=== PATIENT | female | born 1985 | race Caucasian/White ===

== ENCOUNTER → 2016-12-15 | Outpatient (REF) | payer OTHER ==
[~2016-12-15] MED LIST: ACET50TA PO; FERR325T3 PO; IBUP80TA PO; VITAPRTA PO
== END ==
LOC: M SFHCCLAY 15:04
PROVIDERS: ATTEND Nurse Practitioner
DX: N89.8 Other specified noninflammatory disorders of vagina (principal); R10.2 Pelvic and perineal pain

== ENCOUNTER → 2017-04-26 | Outpatient (CLI) | payer MEDICAID ==
[~2017-04-26] MED LIST changes: +FISH100049 PO; +JOIN1CAP PO
[2017-04-26 20:47] LABS: FREE T4 0.86 NG/DL (0.76-1.46)
[2017-04-26 20:59] LABS: MEAN CORPUSCULAR HEMOGLOBIN 33.1 pg (27.0-33.0); MEAN CORPUSCULAR VOLUME 100.3 fl (80.0-96.0); RED CELL DISTRIBUTION WIDTH 13.2 % (11.5-14.5); WHITE BLOOD COUNT 4.8 K/mm3 (4.0-10.0)
== END ==
LOC: M SMT 13:44
PROVIDERS: ATTEND Obstetrics & Gynecology
DX: N92.1 Excessive and frequent menstruation with irregular cycle (principal)

== ENCOUNTER → 2017-06-17 | Outpatient (REF) | payer MEDICAID, OTHER ==
[2017-06-18 12:00] LABS: MEAN CORPUSCULAR HEMOGLOBIN 31.3 pg (27.0-33.0); MEAN CORPUSCULAR HGB CONC 32.8 g/dl (32.0-36.5); MEAN CORPUSCULAR VOLUME 95.3 fl (80.0-96.0); RED CELL DISTRIBUTION WIDTH 12.7 % (11.5-14.5); WHITE BLOOD COUNT 7.7 10^3/uL (4.0-10.0)
[2017-06-18 12:22] LABS: VITAMIN B12 LEVEL 363 PG/ML (247-911)
[2017-06-18 12:28] LABS: FERRITIN 18 NG/ML (8-252); FREE T4 0.81 NG/DL (0.76-1.46)
[2017-06-20 00:06] LABS: Lyme Disease IgG/IgM Antibodie <0.91 ISR (0.00-0.90); Lyme Disease IgM Ab Quantitati <0.80 index (0.00-0.79)
== END ==
LOC: M SFHCCLAY 15:36
PROVIDERS: ATTEND Family Medicine
DX: M25.50 Pain in unspecified joint (principal); R53.83 Other fatigue

== ENCOUNTER → 2017-06-30 | Outpatient (CLI) | payer MEDICAID, OTHER ==
--- NOTE | 2017-07-01 07:47 | REP ---
Clinical: Abnormal menstrual cycles . Technique: Transabdominal pelvic ultrasound followed by transvaginal examination for better evaluation of the endometrium and adnexa with color Doppler evaluation of the ovaries. Findings: Bladder is unremarkable and measures 11.3 x 6.3 x 9.3 cm . Anteverted subseptate uterus measures 8.7 x 4.1 x 6.4 cm . The endometrial complex measures 6.5 mm thickness. No discrete uterine or endometrial abnormalities are appreciated. Bilateral ovaries are normal in appearance and vascularity without evidence for torsion. Right ovary measures 2.7 x 1.5 x 3.1 cm ; R I = 0.50 . Left ovary measures 2.8 x 1.6 x 3.0 cm with 1.3 cm dominant follicle ; R I = 0.66 . No pelvic fluid or adnexal mass lesion. . Impression: 1. Subseptate uterus appears normal. 2. Normal bilateral ovaries without torsion. 1.3 cm left dominant follicle. Signed by Lance Tay MD 07/01/2017 07:39 A
== END ==
LOC: M RAD 12:43
PROVIDERS: ATTEND Obstetrics & Gynecology
DX: N92.1 Excessive and frequent menstruation with irregular cycle (principal); N83.02 Follicular cyst of left ovary

== ENCOUNTER → 2017-08-29 | Outpatient (REF) | payer OTHER | LOC: M LAB REF 21:36 | PROVIDERS: ATTEND Physician Assistant | DX: R30.0 Dysuria (principal) ==

== ENCOUNTER → 2017-10-07 | Outpatient (REF) | payer OTHER | LOC: M SFHCCLAY 15:35 | DX: R87.612 Low grade squamous intraepithelial lesion on cytologic smear of cervix (LGSIL) (principal) | CPT/HCPCS: 88142 ==

== ENCOUNTER → 2018-01-12 | Outpatient (REF) | payer OTHER ==
[2018-01-12 17:01] LABS: RHEUMATOID FACTOR QUANT < 10.0 IU/ML (<15.0)
[2018-01-15 00:07] LABS: ANGIOTENSIN 1 CONVERTING ENZYM 122 U/L (14-82); ANTINUCLEAR ANTIBODIES DIRECT Negative (Negative)
[2018-01-15 00:07] LABS: CYCLIC CITRULLINATED PEPTIDE 6 units (0-19)
== END ==
LOC: M LABDRAW1 12:31
DX: M12.30 Palindromic rheumatism, unspecified site (principal)

== ENCOUNTER 2018-02-06 20:49 | Emergency (ER) | payer OTHER ==
[2018-02-06] MEDS: ALPRAZolam 0.25 MG TAB PO (23:31)
[2018-02-06] MEDS: CEFTAROLINE FOSAMIL 600 MG in D5W MINI-BAG PLUS 50 ML IV (23:31)
[2018-02-06 23:42] LABS: BASO # 0.1 10^3/uL (0.0-0.2); BASO % 0.9 % (0.0-1.0); EOS # 0.2 10^3/uL (0.0-0.50); EOS % 3.8 % (0.0-3.0); HEMATOCRIT 36.5 % (36.0-47.0); HEMOGLOBIN 12.8 g/dl (12.0-15.5); IMMATURE GRANULOCYTE % 0.2 % (0-3.0); LYMPH # 2.3 10^3/uL (1.5-4.5); LYMPH % 39.9 % (24.0-44.0); MEAN CORPUSCULAR HEMOGLOBIN 32.5 pg (27.0-33.0); MEAN CORPUSCULAR HGB CONC 35.1 g/dl (32.0-36.5); MEAN CORPUSCULAR VOLUME 92.6 fl (80.0-96.0); MONO # 0.6 10^3/uL (0.0-0.8); MONO % 9.4 % (0.0-5.0); NEUTROPHILS # 2.7 10^3/uL (1.8-7.7); NEUTROPHILS % 45.8 % (36.0-66.0); PLATELET COUNT, AUTOMATED 306 10^3/uL (150-450); RED BLOOD COUNT 3.94 10^6/uL (4.00-5.40); RED CELL DISTRIBUTION WIDTH 12.6 % (11.5-14.5); WHITE BLOOD COUNT 5.8 10^3/uL (4.0-10.0)
[2018-02-07 00:05] LABS: ANION GAP 5 MEQ/L (8-16); BLOOD UREA NITROGEN 8 MG/DL (7-18); C REACTIVE PROTEIN QUANTITATIV 0.45 MG/DL (0.00-0.30); CALCIUM LEVEL 8.9 MG/DL (8.5-10.1); CARBON DIOXIDE LEVEL 28 MEQ/L (21-32); CHLORIDE LEVEL 110 MEQ/L (98-107); CREATININE FOR GFR 0.83 MG/DL (0.55-1.30); GLOMERULAR FILTRATION RATE > 60.0 (>60); GLUCOSE, FASTING 87 MG/DL (70-100); POTASSIUM SERUM 3.9 MEQ/L (3.5-5.1); SODIUM LEVEL 143 MEQ/L (136-145)
[2018-02-07 00:08] LABS: LACTIC ACID SEPSIS PROTOCOL 0.8 MMOL/L (0.4-2.0)
== END 2018-02-07 00:49 | disposition home or self-care (01) ==
LOC: M ED 02-07 00:49
DX: L03.115 Cellulitis of right lower limb (principal); L03.125 Acute lymphangitis of right lower limb; F41.9 Anxiety disorder, unspecified; Z87.42 Personal history of other diseases of the female genital tract
CPT/HCPCS: J0712

== ENCOUNTER 2018-05-13 09:09 | Emergency (ER) | payer OTHER ==
[2018-05-13 10:29] LABS: BASO # 0.1 10^3/uL (0.0-0.2); BASO % 0.7 % (0.0-1.0); EOS # 0.1 10^3/uL (0.0-0.50); EOS % 1.2 % (0.0-3.0); HEMATOCRIT 38.3 % (36.0-47.0); HEMOGLOBIN 13.5 g/dl (12.0-15.5); IMMATURE GRANULOCYTE % 0.2 % (0-3.0); LYMPH % 34.5 % (24.0-44.0); MEAN CORPUSCULAR HEMOGLOBIN 32.6 pg (27.0-33.0); MEAN CORPUSCULAR HGB CONC 35.2 g/dl (32.0-36.5); MEAN CORPUSCULAR VOLUME 92.5 fl (80.0-96.0); MONO # 0.7 10^3/uL (0.0-0.8); MONO % 8.1 % (0.0-5.0); NEUTROPHILS # 4.8 10^3/uL (1.8-7.7); NEUTROPHILS % 55.3 % (36.0-66.0); PLATELET COUNT, AUTOMATED 290 10^3/uL (150-450); RED BLOOD COUNT 4.14 10^6/uL (4.00-5.40); RED CELL DISTRIBUTION WIDTH 12.5 % (11.5-14.5); WHITE BLOOD COUNT 8.6 10^3/uL (4.0-10.0)
[2018-05-13 10:47] LABS: D-DIMER QUANT 272.2 ng/ml (<500)
[2018-05-13 10:56] LABS: ALBUMIN 3.9 GM/DL (3.2-5.2); ALT/SGPT 22 U/L (12-78); ANION GAP 7 MEQ/L (8-16); AST/SGOT 11 U/L (7-37); BILIRUBIN,DIRECT 0.1 MG/DL (0.0-0.2); BILIRUBIN,TOTAL 0.5 MG/DL (0.2-1.0); BLOOD UREA NITROGEN 16 MG/DL (7-18); CALCIUM LEVEL 9.2 MG/DL (8.5-10.1); CARBON DIOXIDE LEVEL 29 MEQ/L (21-32); CHLORIDE LEVEL 108 MEQ/L (98-107); CPK CREATINE PHOSPHOKINASE 100 U/L (26-192); GLOMERULAR FILTRATION RATE > 60.0 (>60); GLUCOSE, FASTING 68 MG/DL (70-100); LIPASE 150 U/L (73-393); POTASSIUM SERUM 3.4 MEQ/L (3.5-5.1); SODIUM LEVEL 144 MEQ/L (136-145); TROPONIN I < 0.02 NG/ML (< 0.10)
[2018-05-13 11:02] LABS: ALBUMIN/GLOBULIN RATIO 1.15 (1.00-1.93); ALKALINE PHOSPHATASE 34 U/L (45-117); CK-MB VALUE MASS 2.4 NG/ML (<3.6); FREE T4 0.71 NG/DL (0.76-1.46); NT-PRO BNP 47 PG/ML (<125); TOTAL PROTEIN 7.3 GM/DL (6.4-8.2)
[2018-05-13] MEDS: NS 1,000 ML IV (11:19)
== END 2018-05-13 11:58 | disposition home or self-care (01) ==
LOC: M ED 09:09
DX: R07.89 Other chest pain (principal); R53.83 Other fatigue; I49.9 Cardiac arrhythmia, unspecified; R94.31 Abnormal electrocardiogram [ECG] [EKG]; F33.9 Major depressive disorder, recurrent, unspecified; F41.9 Anxiety disorder, unspecified; N73.9 Female pelvic inflammatory disease, unspecified; Z79.52 Long term (current) use of systemic steroids; Z79.899 Other long term (current) drug therapy
CPT/HCPCS: 71046

== ENCOUNTER → 2018-05-24 | Outpatient (CLI) | payer OTHER ==
[2018-05-24 20:08] LABS: FOLLICLE STIMULATING HORMONE 9.3 mIU/mL; LUTEINIZING HORMONE 3.9 mIU/mL
[2018-05-24 20:08] LABS: ESTRADIOL 66.2 PG/ML
== END ==
LOC: M SMT 13:49
DX: N92.1 Excessive and frequent menstruation with irregular cycle (principal)
CPT/HCPCS: 83001

== ENCOUNTER → 2018-07-25 | Outpatient (CLI) | payer OTHER | LOC: M RAD 13:48 | DX: R10.2 Pelvic and perineal pain (principal) | CPT/HCPCS: 76856 ==

== ENCOUNTER → 2018-09-21 | Outpatient (REF) | payer OTHER ==
[~2018-09-21] MED LIST changes: -ACET50TA PO; +ALPR0.25; +CLEO300C2 PO; +DOXY100C37; +MAPA500T2 PO; +PRED20TA
[2018-09-21 17:32] LABS: HEMATOCRIT 38.2 % (36.0-47.0); MEAN CORPUSCULAR HEMOGLOBIN 31.9 pg (27.0-33.0); MEAN CORPUSCULAR VOLUME 93.6 fl (80.0-96.0); PLATELET COUNT, AUTOMATED 292 10^3/uL (150-450); RED BLOOD COUNT 4.08 10^6/uL (4.00-5.40); WHITE BLOOD COUNT 6.3 10^3/uL (4.0-10.0)
[2018-09-21 17:43] LABS: ALBUMIN 4.1 GM/DL (3.2-5.2); ALT/SGPT 21 U/L (12-78); BILIRUBIN,TOTAL 0.8 MG/DL (0.2-1.0); BLOOD UREA NITROGEN 14 MG/DL (7-18); CALCIUM LEVEL 9.2 MG/DL (8.5-10.1); CARBON DIOXIDE LEVEL 28 MEQ/L (21-32); CHLORIDE LEVEL 105 MEQ/L (98-107); CHOLESTEROL LEVEL 182 MG/DL (<200); CHOLESTEROL RISK RATIO 2.141 (<5); CREATININE FOR GFR 0.87 MG/DL (0.55-1.30); GLOMERULAR FILTRATION RATE > 60.0 (>60); GLUCOSE, FASTING 94 MG/DL (70-100); HDL CHOLESTEROL 85 MG/DL (>40); LDL CHOLESTEROL 88 MG/DL (<100); NON-HDL-C 97 MG/DL; POTASSIUM SERUM 4.1 MEQ/L (3.5-5.1); SODIUM LEVEL 139 MEQ/L (136-145); TOTAL PROTEIN 6.9 GM/DL (6.4-8.2); TRIGLYCERIDES LEVEL 45 MG/DL (<150)
== END ==
LOC: M SFHCCLAY 09:41
PROVIDERS: ATTEND Nurse Practitioner Family
DX: F98.8 Other specified behavioral and emotional disorders with onset usually occurring in childhood and adolescence (principal); Z13.6 Encounter for screening for cardiovascular disorders; F41.9 Anxiety disorder, unspecified; Z13.21 Encounter for screening for nutritional disorder

== ENCOUNTER → 2018-09-28 | Outpatient (REF) | payer OTHER ==
[2018-09-28 17:47] LABS: INFLUENZA A AMPLIFICATION NEGATIVE (NEGATIVE); INFLUENZA B AMPLIFICATION NEGATIVE (NEGATIVE)
== END ==
LOC: M LAB REF 16:54
PROVIDERS: ATTEND Physician Assistant
DX: J11.1 Influenza due to unidentified influenza virus with other respiratory manifestations (principal)

== ENCOUNTER → 2019-05-25 | Outpatient (REF) | payer OTHER | LOC: M LAB REF 12:49 | PROVIDERS: ATTEND Physician Assistant | DX: R30.0 Dysuria (principal) ==

== ENCOUNTER → 2019-06-02 | Outpatient (REF) | payer OTHER ==
[2019-06-06 00:07] LABS: HSV TYPE I IgG SPECIFIC <0.91 index (0.00-0.90); HSV TYPE II IgG SPECIFIC 8.12 index (0.00-0.90)
== END ==
LOC: M SFHCPLAZ 11:19
PROVIDERS: ATTEND Internal Medicine Infectious Disease
DX: L08.9 Local infection of the skin and subcutaneous tissue, unspecified (principal)

== ENCOUNTER → 2019-06-15 | Outpatient (REF) | payer OTHER | LOC: M SFHCPLAZ 15:22 | PROVIDERS: ATTEND Internal Medicine Infectious Disease | DX: B00.9 Herpesviral infection, unspecified (principal) ==

== ENCOUNTER → 2019-06-29 | Outpatient (REF) | payer OTHER ==
[2019-06-29 16:35] LABS: APPEARANCE, URINE CLEAR (CLEAR); BACTERIA, URINE AUTO NEGATIVE (NEGATIVE); BILIRUBIN, URINE AUTO NEGATIVE (NEGATIVE); BLOOD, URINE BLOOD NEGATIVE (NEGATIVE); COLOR, URINE STRAW (YELLOW); GLUCOSE, URINE (UA) AUTO NEGATIVE (NEGATIVE); KETONE, URINE AUTO NEGATIVE (NEGATIVE); LEUKOCYTE ESTERASE, URINE AUTO NEGATIVE (NEGATIVE); NITRITE, URINE AUTO NEGATIVE (NEGATIVE); PROTEIN, URINE AUTO NEGATIVE (NEGATIVE); RBC, URINE AUTO 0 /HPF (0-3); SPECIFIC GRAVITY URINE AUTO 1.005 (1.002-1.035); SQUAMOUS EPITHELIAL CELL UR AU 1 /HPF (0-6); UROBILINOGEN, URINE AUTO 0.2 mg/dL (0.0-2.0); WBC, URINE AUTO 0 /HPF (0-3)
[2019-06-29 18:13] LABS: CHLAMYDIA DNA AMPLIFICATION NEGATIVE (NEGATIVE); GC DNA AMPLIFICATION NEGATIVE (NEGATIVE)
== END ==
LOC: M LAB REF 16:19
PROVIDERS: ATTEND Physician Assistant
DX: L29.2 Pruritus vulvae (principal)

== ENCOUNTER → 2019-07-18 | Outpatient (REF) | payer OTHER ==
[2019-07-18 20:13] LABS: APPEARANCE, URINE CLEAR (CLEAR); BACTERIA, URINE AUTO NEGATIVE (NEGATIVE); BILIRUBIN, URINE AUTO NEGATIVE (NEGATIVE); BLOOD, URINE BLOOD NEGATIVE (NEGATIVE); COLOR, URINE YELLOW (YELLOW); GLUCOSE, URINE (UA) AUTO NEGATIVE (NEGATIVE); KETONE, URINE AUTO NEGATIVE (NEGATIVE); LEUKOCYTE ESTERASE, URINE AUTO NEGATIVE (NEGATIVE); MUCUS, URINE SMALL (NEGATIVE); NITRITE, URINE AUTO NEGATIVE (NEGATIVE); PROTEIN, URINE AUTO NEGATIVE (NEGATIVE); RBC, URINE AUTO 1 /HPF (0-3); SPECIFIC GRAVITY URINE AUTO 1.018 (1.002-1.035); SQUAMOUS EPITHELIAL CELL UR AU 0 /HPF (0-6); UROBILINOGEN, URINE AUTO 0.2 mg/dL (0.0-2.0); WBC, URINE AUTO 0 /HPF (0-3)
== END ==
LOC: M LAB REF 17:13
PROVIDERS: ATTEND Physician Assistant Medical
DX: N39.0 Urinary tract infection, site not specified (principal)

== ENCOUNTER → 2019-08-16 | Outpatient (REF) | payer OTHER ==
[2019-08-16 14:01] LABS: APPEARANCE, URINE CLEAR (CLEAR); BACTERIA, URINE AUTO NEGATIVE (NEGATIVE); BILIRUBIN, URINE AUTO NEGATIVE (NEGATIVE); BLOOD, URINE BLOOD NEGATIVE (NEGATIVE); COLOR, URINE STRAW (YELLOW); GLUCOSE, URINE (UA) AUTO NEGATIVE (NEGATIVE); KETONE, URINE AUTO NEGATIVE (NEGATIVE); LEUKOCYTE ESTERASE, URINE AUTO 1+ (NEGATIVE); MUCUS, URINE SMALL (NEGATIVE); NITRITE, URINE AUTO NEGATIVE (NEGATIVE); PROTEIN, URINE AUTO NEGATIVE (NEGATIVE); RBC, URINE AUTO 1 /HPF (0-3); SPECIFIC GRAVITY URINE AUTO 1.003 (1.002-1.035); SQUAMOUS EPITHELIAL CELL UR AU 3 /HPF (0-6); UROBILINOGEN, URINE AUTO 0.2 mg/dL (0.0-2.0); WBC, URINE AUTO 1 /HPF (0-3)
== END ==
LOC: M LAB REF 12:19
PROVIDERS: ATTEND Physician Assistant
DX: N39.0 Urinary tract infection, site not specified (principal)

== ENCOUNTER → 2019-08-19 | Outpatient (REF) | payer OTHER | LOC: M LAB REF 11:00 | PROVIDERS: ATTEND Physician Assistant | DX: R19.7 Diarrhea, unspecified (principal) ==

== ENCOUNTER → 2019-09-14 | Outpatient (CLI) | payer OTHER ==
[2019-09-14 16:17] LABS: ESTRADIOL 160.4 PG/ML; FOLLICLE STIMULATING HORMONE 6.2 mIU/mL; LUTEINIZING HORMONE 4.1 mIU/mL
== END ==
LOC: M PLALAB 12:33
PROVIDERS: ATTEND Obstetrics & Gynecology
DX: N95.2 Postmenopausal atrophic vaginitis (principal); R10.2 Pelvic and perineal pain

== ENCOUNTER → 2019-10-06 | Outpatient (REF) | payer OTHER | LOC: M SFHCWAGY 18:21 | PROVIDERS: ATTEND Advanced Practice Midwife | DX: Z12.4 Encounter for screening for malignant neoplasm of cervix (principal) ==

== ENCOUNTER → 2021-01-01 | Outpatient (REF) | payer OTHER ==
[2021-01-01 20:28] LABS: CHLAMYDIA DNA AMPLIFICATION NEGATIVE (NEGATIVE); GC DNA AMPLIFICATION NEGATIVE (NEGATIVE)
== END ==
LOC: M SFHCCLAY 11:55
PROVIDERS: ATTEND Family Medicine
DX: N76.1 Subacute and chronic vaginitis (principal)

== ENCOUNTER → 2021-01-23 | Outpatient (CLI) | payer OTHER ==
--- NOTE | 2021-01-23 15:43 | REP ---
INDICATION: R07.89 MID STERNAL CHEST PAIN; SOB COMPARISON: 05/13/2018 TECHNIQUE: PA and lateral. FINDINGS: The mediastinum and cardiac silhouette are normal. The lung wolf are clear and without acute consolidation, effusion, or pneumothorax. The skeletal structures are intact and normal. IMPRESSION: No acute cardiopulmonary process. <Electronically signed by Lance Tay > 01/23/21 1537
== END ==
LOC: M CLY 15:13
PROVIDERS: ATTEND Nurse Practitioner Family
DX: R07.89 Other chest pain (principal)

== ENCOUNTER → 2021-01-28 | Outpatient (REF) | payer OTHER ==
[2021-01-28 16:06] LABS: HEMOGLOBIN 13.9 g/dl (12.0-15.5); MEAN CORPUSCULAR HEMOGLOBIN 33.4 pg (27.0-33.0); MEAN CORPUSCULAR HGB CONC 33.9 g/dl (32.0-36.5); MEAN CORPUSCULAR VOLUME 98.6 fl (80.0-96.0); PLATELET COUNT, AUTOMATED 298 10^3/uL (150-450); RED BLOOD COUNT 4.16 10^6/uL (4.00-5.40)
[2021-01-28 16:46] LABS: ALBUMIN 4.1 GM/DL (3.2-5.2); ALT/SGPT 25 U/L (12-78); BILIRUBIN,TOTAL 0.7 MG/DL (0.2-1.0); BLOOD UREA NITROGEN 13 MG/DL (7-18); CALCIUM LEVEL 9.4 MG/DL (8.5-10.1); CARBON DIOXIDE LEVEL 29 MEQ/L (21-32); CHLORIDE LEVEL 107 MEQ/L (98-107); CHOLESTEROL LEVEL 197 MG/DL (<200); CHOLESTEROL RISK RATIO 2.317 (<5); CREATININE FOR GFR 0.83 MG/DL (0.55-1.30); FERRITIN 60 NG/ML (8-252); FREE THYROXINE INDEX 1.3 % (1.3-4.8); GLOMERULAR FILTRATION RATE > 60.0 (>60); GLUCOSE, FASTING 91 MG/DL (70-100); HDL CHOLESTEROL 85 MG/DL (>40); IRON (FE) 168 UG/DL (50-170); LDL CHOLESTEROL 98 MG/DL (<100); NON-HDL-C 112 MG/DL; PERCENT SATURATION 46.2 % (13.2-45.0); POTASSIUM SERUM 4.6 MEQ/L (3.5-5.1); SODIUM LEVEL 139 MEQ/L (136-145); T UPTAKE 31 % (30-39); THYROXINE (T4) 4.3 UG/DL (4.5-12.0); TOTAL IRON BINDING CAPACITY 364 UG/DL (250-450); TRIGLYCERIDES LEVEL 71 MG/DL (<150)
[2021-01-28 16:48] LABS: FOLATE 17.5 NG/ML (>5.4); TOTAL 25(OH) VITAMIN D 24.1 NG/ML (30.0-100.0); VITAMIN B12 LEVEL 256 PG/ML (247-911)
== END ==
LOC: M SFHCCLAY 10:35
PROVIDERS: ATTEND Nurse Practitioner Family
DX: R53.83 Other fatigue (principal); N92.6 Irregular menstruation, unspecified; Z13.6 Encounter for screening for cardiovascular disorders; Z13.21 Encounter for screening for nutritional disorder

== ENCOUNTER → 2021-11-12 | Outpatient (REF) | payer OTHER ==
[~2021-11-12] MED LIST changes: +DOXY-443; -DOXY100C37
[2021-11-12 11:29] LABS: HEMATOCRIT 38.5 % (36.0-47.0); HEMOGLOBIN 13.1 g/dl (12.0-15.5); MEAN CORPUSCULAR HEMOGLOBIN 32.7 pg (27.0-33.0); PLATELET COUNT, AUTOMATED 300 10^3/uL (150-450); RED BLOOD COUNT 4.01 10^6/uL (4.00-5.40); WHITE BLOOD COUNT 7.5 10^3/uL (4.0-10.0)
[2021-11-12 13:00] LABS: ALBUMIN 3.6 GM/DL (3.2-5.2); ALT/SGPT 24 U/L (12-78); BILIRUBIN,TOTAL 0.3 MG/DL (0.2-1.0); BLOOD UREA NITROGEN 15 MG/DL (7-18); CALCIUM LEVEL 8.9 MG/DL (8.5-10.1); CARBON DIOXIDE LEVEL 30 MEQ/L (21-32); CHLORIDE LEVEL 107 MEQ/L (98-107); CHOLESTEROL LEVEL 178 MG/DL (<200); CHOLESTEROL RISK RATIO 3.068 (<5); CREATININE FOR GFR 0.79 MG/DL (0.55-1.30); FREE T4 0.77 NG/DL (0.76-1.46); GLOMERULAR FILTRATION RATE > 60.0 (>60); GLUCOSE, FASTING 91 MG/DL (70-100); HDL CHOLESTEROL 58 MG/DL (>40); LDL CHOLESTEROL 111 MG/DL (<100); NON-HDL-C 120 MG/DL; POTASSIUM SERUM 4.6 MEQ/L (3.5-5.1); SODIUM LEVEL 140 MEQ/L (136-145); TOTAL 25(OH) VITAMIN D 30.7 NG/ML (30.0-100.0); TOTAL PROTEIN 6.3 GM/DL (6.4-8.2); TRIGLYCERIDES LEVEL 47 MG/DL (<150)
== END ==
LOC: M SFHCCLAY 07:43
PROVIDERS: ATTEND Nurse Practitioner Family
DX: R53.83 Other fatigue (principal); E55.9 Vitamin D deficiency, unspecified; Z13.29 Encounter for screening for other suspected endocrine disorder; Z13.220 Encounter for screening for lipoid disorders

== ENCOUNTER → 2021-11-12 | Outpatient (CLI) | payer OTHER | LOC: M CLY 09:02 | PROVIDERS: ATTEND Physician Assistant | DX: M54.2 Cervicalgia (principal); M25.512 Pain in left shoulder ==

== ENCOUNTER → 2022-02-17 | Outpatient (REF) | payer OTHER ==
[2022-02-17 16:25] LABS: HEMATOCRIT 40.5 % (36.0-47.0); HEMOGLOBIN 13.8 g/dl (12.0-15.5); MEAN CORPUSCULAR HEMOGLOBIN 31.8 pg (27.0-33.0); MEAN CORPUSCULAR HGB CONC 34.1 g/dl (32.0-36.5); MEAN CORPUSCULAR VOLUME 93.3 fl (80.0-96.0); PLATELET COUNT, AUTOMATED 288 10^3/uL (150-450); RED BLOOD COUNT 4.34 10^6/uL (4.00-5.40); WHITE BLOOD COUNT 6.7 10^3/uL (4.0-10.0)
[2022-02-17 16:56] LABS: ALT/SGPT 23 U/L (12-78); BILIRUBIN,TOTAL 0.5 MG/DL (0.2-1.0); BLOOD UREA NITROGEN 13 MG/DL (7-18); CALCIUM LEVEL 9.6 MG/DL (8.5-10.1); CARBON DIOXIDE LEVEL 28 MEQ/L (21-32); CHLORIDE LEVEL 107 MEQ/L (98-107); GLOMERULAR FILTRATION RATE > 60.0 (>60); GLUCOSE, FASTING 121 MG/DL (70-100); POTASSIUM SERUM 4.7 MEQ/L (3.5-5.1); SODIUM LEVEL 140 MEQ/L (136-145); TOTAL PROTEIN 6.9 GM/DL (6.4-8.2)
== END ==
LOC: M SFHCCLAY 09:52
PROVIDERS: ATTEND Nurse Practitioner Family
DX: K21.9 Gastro-esophageal reflux disease without esophagitis (principal)

== ENCOUNTER → 2022-09-15 | Outpatient (REF) | payer OTHER ==
[2022-09-15 18:46] LABS: FREE T4 0.88 NG/DL (0.89-1.76); THYROID STIMULATING HORMONE 1.578 uIU/ML (0.55-4.78)
[2022-09-15 18:47] LABS: FOLLICLE STIMULATING HORMONE 7.4 mIU/ML
== END ==
LOC: M LABDRAWC 17:58
PROVIDERS: ATTEND Obstetrics & Gynecology
DX: N92.6 Irregular menstruation, unspecified (principal)

== ENCOUNTER → 2022-09-15 | Outpatient (REF) | payer OTHER ==
[2022-09-15 18:19] LABS: HEMATOCRIT 39.2 % (36.0-47.0); HEMOGLOBIN 13.1 g/dl (12.0-15.5); MEAN CORPUSCULAR HEMOGLOBIN 32.8 pg (27.0-33.0); MEAN CORPUSCULAR HGB CONC 33.4 g/dl (32.0-36.5); PLATELET COUNT, AUTOMATED 311 10^3/uL (150-450); WHITE BLOOD COUNT 6.4 10^3/uL (4.0-10.0)
[2022-09-15 18:43] LABS: ALBUMIN 3.9 G/DL (3.2-5.2); ALKALINE PHOSPHATASE 49 U/L (46-116); ALT/SGPT 24 U/L (7.0-40); AST/SGOT 20 U/L (<34); BILIRUBIN,TOTAL 0.3 MG/DL (0.3-1.2); BLOOD UREA NITROGEN 18 MG/DL (9-23); CALCIUM LEVEL 9.2 MG/DL (8.5-10.1); CARBON DIOXIDE LEVEL 24 MMOL/L (20-31); CHLORIDE LEVEL 103 MMOL/L (98-107); CHOLESTEROL LEVEL 197 MG/DL (<200); CHOLESTEROL RISK RATIO 2.53 (<5); CREATININE FOR GFR 0.96 MG/DL (0.55-1.30); GLOMERULAR FILTRATION RATE > 60.0 (>60); GLUCOSE, FASTING 106 MG/DL (60-100); HDL CHOLESTEROL 77.8 MG/DL (>40); NON-HDL-C 119 MG/DL; POTASSIUM SERUM 4.7 MMOL/L (3.5-5.1); SODIUM LEVEL 140 MMOL/L (136-145); TOTAL PROTEIN 6.6 G/DL (5.7-8.2); TRIGLYCERIDES LEVEL 86 MG/DL (<150)
[2022-09-15 18:51] LABS: HEMOGLOBIN A1c 4.6 % (4.0-6.0)
== END ==
LOC: M SFHCCLAY 13:24
PROVIDERS: ATTEND Nurse Practitioner Family
DX: R63.5 Abnormal weight gain (principal); R73.01 Impaired fasting glucose

== ENCOUNTER → 2022-10-01 | Outpatient (CLI) | payer OTHER | LOC: M RAD 10:29 | PROVIDERS: ATTEND Obstetrics & Gynecology | DX: N92.6 Irregular menstruation, unspecified (principal) ==

== ENCOUNTER → 2023-08-10 | Outpatient (REF) | payer OTHER ==
[2023-08-10 20:11] LABS: HEMOGLOBIN A1c 4.7 % (4.0-6.0)
[2023-08-10 20:36] LABS: ALBUMIN 4.1 G/DL (3.2-5.2); ALKALINE PHOSPHATASE 55 U/L (46-116); ALT/SGPT 27 U/L (7.0-40); AST/SGOT 22 U/L (<34); BILIRUBIN,TOTAL 0.5 MG/DL (0.3-1.2); BLOOD UREA NITROGEN 24 MG/DL (9-23); CALCIUM LEVEL 9.6 MG/DL (8.5-10.1); CARBON DIOXIDE LEVEL 29 MMOL/L (20-31); CHLORIDE LEVEL 105 MMOL/L (98-107); CREATININE FOR GFR 0.99 MG/DL (0.55-1.30); GLOMERULAR FILTRATION RATE > 60.0 (>60); GLUCOSE, FASTING 85 MG/DL (60-100); POTASSIUM SERUM 4.6 MMOL/L (3.5-5.1); SODIUM LEVEL 143 MMOL/L (136-145); TOTAL PROTEIN 6.9 G/DL (5.7-8.2)
[2023-08-10 20:39] LABS: THYROID STIMULATING HORMONE 0.863 uIU/ML (0.55-4.78)
[2023-08-10 20:42] LABS: FREE T4 0.98 NG/DL (0.89-1.76)
== END ==
LOC: M SFHCCLAY 14:27
PROVIDERS: ATTEND Nurse Practitioner Family
DX: R63.5 Abnormal weight gain (principal)

== ENCOUNTER → 2023-10-14 | Outpatient (CLI) | payer OTHER | LOC: M RAD 09:04 | PROVIDERS: ATTEND Nurse Practitioner Family | DX: R14.0 Abdominal distension (gaseous) (principal) ==

== ENCOUNTER → 2023-11-03 | Outpatient (CLI) | payer OTHER | LOC: M CLY 11:36 | PROVIDERS: ATTEND Physician Assistant | DX: S69.92XA Unspecified injury of left wrist, hand and finger(s), initial encounter (principal) ==

== ENCOUNTER → 2023-11-11 | Outpatient (REF) | payer OTHER | LOC: M SFHCCLAY 11:38 | PROVIDERS: ATTEND Physician Assistant | DX: R30.0 Dysuria (principal); N94.9 Unspecified condition associated with female genital organs and menstrual cycle ==

== ENCOUNTER 2024-02-10 09:14 | Day surgery (SDC) | payer OTHER ==
[~2024-02-10] VITALS: Ht 160 cm; Wt 73.9 kg
[~2024-02-10 09:14] MED LIST changes: +AMOX875T2 PO; +DOXY-323; -DOXY-443; +LIDOCAINE 2% 100MG/5ML SDV (FOR ANES.) As Ordered ONE; +NS 1,000 ML IV ONE; +fentaNYL 100 MCG/2 ML INJECTION As Ordered ONE; +propofoL 500 MG/50 ML VIAL As Ordered ONE
[2024-02-10] MEDS ORDERED: PROG1CAP8 PO (09:28)
[2024-02-10] MEDS ORDERED: KETOROLAC 60MG 2ML VIAL As Ordered ONE (11:03)
[2024-02-10] MEDS ORDERED: PHENYLephrine 500MCG 5ML (100MCG/ML) SYRINGE As Ordered ONE (11:21)
[2024-02-10] MEDS ORDERED: ePHEDrine SULFATE 25 MG/5 ML(5MG/ML) SYRINGE As Ordered ONE (11:38)
[2024-02-10 11:42] VITALS: TEMP 98.2
[2024-02-10 12:05] VITALS: BP 109/66; O2SAT 100
== END 2024-02-10 12:35 | disposition home or self-care (01) ==
LOC: M OPP 09:14
PROVIDERS: ATTEND Internal Medicine Gastroenterology
DX: K64.8 Other hemorrhoids (principal); K64.4 Residual hemorrhoidal skin tags; R19.4 Change in bowel habit; K29.70 Gastritis, unspecified, without bleeding; K22.89 Other specified disease of esophagus; Q43.8 Other specified congenital malformations of intestine; R10.13 Epigastric pain; Z79.2 Long term (current) use of antibiotics; Z88.1 Allergy status to other antibiotic agents; Z88.8 Allergy status to other drugs, medicaments and biological substances; Z91.018 Allergy to other foods
CPT/HCPCS: 43239; 45378; 88305; J1885; J2371; J3010

== ENCOUNTER → 2024-05-10 | Outpatient (REF) | payer OTHER ==
[~2024-05-10] MED LIST changes: -LIDOCAINE 2% 100MG/5ML SDV (FOR ANES.) As Ordered ONE; -NS 1,000 ML IV ONE; +PROG1CAP8 PO; -fentaNYL 100 MCG/2 ML INJECTION As Ordered ONE; -propofoL 500 MG/50 ML VIAL As Ordered ONE
== END ==
LOC: M LAB REF 16:43
PROVIDERS: ATTEND Nurse Practitioner Family
DX: R19.7 Diarrhea, unspecified (principal); B96.81 Helicobacter pylori [H. pylori] as the cause of diseases classified elsewhere

== ENCOUNTER → 2024-06-14 | Outpatient (REF) | payer OTHER ==
[~2024-06-14] MED LIST changes: -DOXY-323; +DOXY-441
== END ==
LOC: M SFHCCLAY 11:38
PROVIDERS: ATTEND Family Medicine
DX: K29.90 Gastroduodenitis, unspecified, without bleeding (principal)

== ENCOUNTER → 2024-07-07 | Outpatient (REF) | payer OTHER ==
[2024-07-07 19:22] LABS: BASO # 0.1 10^3/uL (0.0-0.2); BASO % 1.1 % (0.0-1.0); EOS # 0.2 10^3/uL (0.0-0.5); EOS % 2.3 % (0.0-3.0); HEMATOCRIT 41.4 % (36.0-47.0); HEMOGLOBIN 14.2 g/dl (12.0-15.5); LYMPH # 1.9 10^3/uL (1.5-5.0); LYMPH % 25.9 % (24.0-44.0); MEAN CORPUSCULAR HEMOGLOBIN 32.5 pg (27.0-33.0); MEAN CORPUSCULAR HGB CONC 34.3 g/dl (32.0-36.5); MEAN CORPUSCULAR VOLUME 94.7 fl (80.0-96.0); MONO # 0.5 10^3/uL (0.0-0.8); MONO % 6.6 % (2.0-8.0); NEUTROPHILS # 4.7 10^3/uL (1.5-8.5); PLATELET COUNT, AUTOMATED 357 10^3/uL (150-450); RED BLOOD COUNT 4.37 10^6/uL (4.00-5.40); WHITE BLOOD COUNT 7.4 10^3/uL (4.0-10.0)
[2024-07-07 19:34] LABS: C REACTIVE PROTEIN QUANTITATIV < 0.40 MG/DL (<1.0)
[2024-07-07 19:36] LABS: ALBUMIN 4.2 G/DL (3.2-5.2); ALKALINE PHOSPHATASE 52 U/L (35-104); ALT/SGPT 32 U/L (7.0-40); AST/SGOT 15 U/L (<34); BILIRUBIN,TOTAL 0.4 MG/DL (0.3-1.2); BLOOD UREA NITROGEN 20 MG/DL (9-23); CALCIUM LEVEL 10.2 MG/DL (8.5-10.1); CARBON DIOXIDE LEVEL 28 MMOL/L (20-31); CHLORIDE LEVEL 109 MMOL/L (98-107); CHOLESTEROL LEVEL 218 MG/DL (<200); CHOLESTEROL RISK RATIO 3.48 (<5); CREATININE FOR GFR 0.84 MG/DL (0.55-1.30); GLOMERULAR FILTRATION RATE > 60.0 (>60); GLUCOSE, FASTING 95 MG/DL (60-100); HDL CHOLESTEROL 62.6 MG/DL (>40); LDL CHOLESTEROL 129.4 MG/DL (<100); NON-HDL-C 155.4 MG/DL; POTASSIUM SERUM 4.8 MMOL/L (3.5-5.1); RHEUMATOID FACTOR QUANT < 3.5 IU/ML (<14); SODIUM LEVEL 139 MMOL/L (136-145); TOTAL PROTEIN 7.3 G/DL (5.7-8.2); TRIGLYCERIDES LEVEL 130 MG/DL (<150)
[2024-07-07 19:37] LABS: FREE T4 1.06 NG/DL (0.89-1.76)
[2024-07-07 19:38] LABS: THYROID STIMULATING HORMONE 0.972 uIU/ML (0.55-4.78)
[2024-07-07 19:39] LABS: HEMOGLOBIN A1c 4.9 % (4.0-6.0)
[2024-07-07 19:52] LABS: ERYTHROCYTE SEDIMENTATION RATE 13 mm/hr (0-20)
[2024-07-10 13:02] LABS: ANA SCREEN, IFA NEGATIVE (NEGATIVE)
== END ==
LOC: M SFHCCLAY 11:03
PROVIDERS: ATTEND Nurse Practitioner Family
DX: R63.5 Abnormal weight gain (principal); M25.552 Pain in left hip

== ENCOUNTER → 2024-07-07 | Outpatient (CLI) | payer OTHER | LOC: M CLY 11:24 | PROVIDERS: ATTEND Nurse Practitioner Family | DX: M25.552 Pain in left hip (principal) ==

== ENCOUNTER → 2024-08-22 | Outpatient (REF) | payer OTHER ==
[2024-08-22 19:25] LABS: FOLLICLE STIMULATING HORMONE 4.1 mIU/ML
[2024-08-22 19:26] LABS: LUTEINIZING HORMONE 1.6 mIU/ML; PROLACTIN 8.71 NG/ML
== END ==
LOC: M SFHCCLAY 12:04
PROVIDERS: ATTEND Nurse Practitioner Family
DX: N91.2 Amenorrhea, unspecified (principal)

== ENCOUNTER → 2024-10-09 | Outpatient (CLI) | payer OTHER | LOC: M RAD 10:40 | PROVIDERS: ATTEND Physician Assistant | DX: M25.552 Pain in left hip (principal) ==

== ENCOUNTER 2024-10-25 06:14 | Day surgery (SDC) | payer OTHER ==
[~2024-10-25] VITALS: Ht 160 cm; Wt 80.6 kg
[~2024-10-25 06:14] MED LIST changes: +ALPR0.25 PO; +METH27TA6 PO; +NAPR220C14 PO; +OMEP40CA5 PO
[2024-10-25] MEDS ORDERED: NS (Normal Saline) 0.9% 1,000 ML IV SCH ×2 (06:20→09:10)
[2024-10-25 06:40] LABS: HEMATOCRIT 39.1 % (36.0-47.0); HEMOGLOBIN 13.4 g/dl (12.0-15.5); MEAN CORPUSCULAR HEMOGLOBIN 31.8 pg (27.0-33.0); MEAN CORPUSCULAR HGB CONC 34.3 g/dl (32.0-36.5); MEAN CORPUSCULAR VOLUME 92.7 fl (80.0-96.0); PLATELET COUNT, AUTOMATED 287 10^3/uL (150-450); RED BLOOD COUNT 4.22 10^6/uL (4.00-5.40); WHITE BLOOD COUNT 6.6 10^3/uL (4.0-10.0)
[2024-10-25] MEDS ORDERED: LIDOCAINE 2% 100MG/5ML SDV (FOR ANES.) As Ordered ONE (07:18)
[2024-10-25] MEDS ORDERED: ONDANSETRON 4MG 2ML VIAL As Ordered ONE (07:18)
[2024-10-25] MEDS ORDERED: fentaNYL 250 MCG/5 ML INJECTION As Ordered ONE (07:18)
[2024-10-25] MEDS ORDERED: KETOROLAC 60MG 2ML VIAL As Ordered ONE (07:18)
[2024-10-25] MEDS ORDERED: dexmedeTOMIDine (4MCG/ML)200MCG/50ML BTL (PRECEDEX) As Ordered ONE (07:18)
[2024-10-25] MEDS ORDERED: propofoL 200 MG/20 ML VIAL As Ordered ONE (07:18)
[2024-10-25] MEDS ORDERED: ROCURONIUM BROMIDE 50MG/5ML VIAL As Ordered ONE (07:18)
[2024-10-25] MEDS ORDERED: MIDAZOLAM INJ 2MG/2ML VIAL As Ordered ONE (07:19)
[2024-10-25] MEDS: SCOPOLAMINE 1MG TRANSDERMAL PATCH TOP ONE (07:20)
[2024-10-25] MEDS: ceFAZolin SOD 2 GM in IV 1 EA IV ONE (07:53)
[2024-10-25] MEDS ORDERED: ACETAMINOPHEN 1000MG/100ML IV BAG As Ordered ONE (08:02)
[2024-10-25] MEDS ORDERED: LACRILUBE (AKWA TEARS) OPHTH OINT 3.5GM As Ordered ONE (08:02)
[2024-10-25] MEDS ORDERED: SUGAMMADEX SODIUM 500 MG/5 ML VIAL (BRIDION) As Ordered ONE (08:02)
[2024-10-25] MEDS ORDERED: GLYCOPYRROLATE INJ 0.2 MG/ML 2 ML VIAL As Ordered ONE (08:19)
[2024-10-25] MEDS: FLUORESCEIN 10% (100MG/ML) 5ML VIAL As Ordered ONE (08:50)
[2024-10-25] MEDS ORDERED: fentaNYL 100 MCG/2 ML INJECTION IV PRN (09:10)
[2024-10-25] MEDS ORDERED: PERC5TAB12 PO (09:13)
[2024-10-25] MEDS: oxyCODONE 5MG TAB PO PRN (09:32)
[2024-10-25] MEDS: HYDROMORPHONE HCL 0.5 MG/ 0.5 ML SYRINGE IV PRN (09:33)
[2024-10-25] MEDS: ONDANSETRON 4MG 2ML VIAL IV PRN (09:33)
[2024-10-25] MEDS ORDERED: LR 1,000 ML IV SCH (10:20)
[2024-10-25] MEDS ORDERED: PERCOCET 5MG/325MG TAB PO PRN (10:20)
[2024-10-25 10:28] VITALS: BP 118/70; TEMP 97.2; O2SAT 96
[2024-10-25] MEDS ORDERED: SIMETHICONE 80MG CHEW TAB PO SCH (12:00)
[2024-10-25] MEDS ORDERED: IBUPROFEN 800 MG TAB PO SCH (15:00)
== END 2024-10-25 11:20 | disposition home or self-care (01) ==
LOC: M SDC 06:14
PROVIDERS: ATTEND Obstetrics & Gynecology
DX: D25.9 Leiomyoma of uterus, unspecified (principal); N83.01 Follicular cyst of right ovary; N83.02 Follicular cyst of left ovary; N93.9 Abnormal uterine and vaginal bleeding, unspecified; Z98.890 Other specified postprocedural states; R10.2 Pelvic and perineal pain; N94.6 Dysmenorrhea, unspecified; J30.9 Allergic rhinitis, unspecified; Z88.2 Allergy status to sulfonamides; Z88.8 Allergy status to other drugs, medicaments and biological substances; Z88.0 Allergy status to penicillin; Z91.018 Allergy to other foods; Z79.899 Other long term (current) drug therapy
CPT/HCPCS: 36415; 58571; 81025; 85027; 86850; 86900; 86901; 88307; J0131; J0665; J0690; J1100; J1171; J1596; J1885; J2250; J2405; J3010; S2900

== ENCOUNTER 2024-10-28 23:30 | Emergency (ER) | payer OTHER ==
[~2024-10-28] VITALS: Ht 160 cm; Wt 80.6 kg
[~2024-10-28 23:30] MED LIST changes: +PERC5TAB12 PO
[2024-10-28] MEDS ORDERED: SIME1CAP4 PO (23:38)
[2024-10-28] MEDS ORDERED: DULC5TAB PO (23:38)
[2024-10-29 00:30] LABS: BASO # 0.1 10^3/uL (0.0-0.2); BASO % 0.8 % (0.0-1.0); EOS # 0.4 10^3/uL (0.0-0.5); EOS % 4.1 % (0.0-3.0); HEMATOCRIT 38.7 % (36.0-47.0); HEMOGLOBIN 13.7 g/dl (12.0-15.5); LYMPH # 2.9 10^3/uL (1.5-5.0); LYMPH % 33.9 % (24.0-44.0); MEAN CORPUSCULAR HEMOGLOBIN 32.6 pg (27.0-33.0); MEAN CORPUSCULAR HGB CONC 35.4 g/dl (32.0-36.5); MEAN CORPUSCULAR VOLUME 92.1 fl (80.0-96.0); MONO # 0.6 10^3/uL (0.0-0.8); MONO % 6.8 % (2.0-8.0); NEUTROPHILS # 4.6 10^3/uL (1.5-8.5); NEUTROPHILS % 54.2 % (36.0-66.0); PLATELET COUNT, AUTOMATED 300 10^3/uL (150-450); WHITE BLOOD COUNT 8.4 10^3/uL (4.0-10.0)
[2024-10-29 01:02] LABS: CALCIUM LEVEL 9.3 MG/DL (8.5-10.1); CREATININE FOR GFR 1.08 MG/DL (0.55-1.30); GLOMERULAR FILTRATION RATE 59.8 (>58); POTASSIUM SERUM 4.3 MMOL/L (3.5-5.1)
[2024-10-29] MEDS ORDERED: ISOVUE-370 76% 100ML VIAL As Ordered ONE (02:13)
[2024-10-29 03:08] VITALS: BP 117/54; TEMP 96.1; O2SAT 96
== END 2024-10-29 03:11 | disposition home or self-care (01) ==
LOC: M ED 23:30
DX: H57.02 Anisocoria (principal); Z88.1 Allergy status to other antibiotic agents; Z88.2 Allergy status to sulfonamides; Z88.8 Allergy status to other drugs, medicaments and biological substances; Z91.09 Other allergy status, other than to drugs and biological substances; Z91.018 Allergy to other foods; Z79.899 Other long term (current) drug therapy
CPT/HCPCS: 36415; 70450; 70496; 80048; 85025; 99284; Q9967

== ENCOUNTER → 2025-05-18 | Outpatient (CLI) | payer OTHER ==
[~2025-05-18] MED LIST changes: +DULC5TAB PO; +SIME1CAP4 PO
== END ==
LOC: M CLY 10:52
PROVIDERS: ATTEND Nurse Practitioner Family
DX: M54.2 Cervicalgia (principal)

== ENCOUNTER → 2025-05-21 | Outpatient (REF) | payer OTHER ==
[2025-05-21 12:36] LABS: BASO # 0.1 10^3/uL (0.0-0.2); BASO % 1.3 % (0.0-1.0); EOS # 0.2 10^3/uL (0.0-0.5); EOS % 3.5 % (0.0-3.0); LYMPH # 1.8 10^3/uL (1.5-5.0); LYMPH % 28.3 % (24.0-44.0); MONO # 0.5 10^3/uL (0.0-0.8); MONO % 7.7 % (2.0-8.0); NEUTROPHILS # 3.8 10^3/uL (1.5-8.5); NEUTROPHILS % 59.0 % (36.0-66.0); PLATELET COUNT, AUTOMATED 314 10^3/uL (150-450)
[2025-05-21 12:57] LABS: ESTIMATED AVERAGE GLUCOSE 105.0 MG/DL (60-110)
[2025-05-21 13:15] LABS: ALT/SGPT 26.0 U/L (7.0-40); AST/SGOT 20.0 U/L (<34); CALCIUM LEVEL 9.5 MG/DL (8.5-10.1); CARBON DIOXIDE LEVEL 28.0 MMOL/L (20-31); CHLORIDE LEVEL 106.0 MMOL/L (98-107); CHOLESTEROL LEVEL 201.0 MG/DL (<200); CHOLESTEROL RISK RATIO 3.3 (<5); CREATININE FOR GFR 0.88 MG/DL (0.55-1.30); GLOMERULAR FILTRATION RATE 85.2 (>58); LDL CHOLESTEROL 128.1 MG/DL (<100); NON-HDL-C 140.1 MG/DL; POTASSIUM SERUM 5.1 MMOL/L (3.5-5.1); SODIUM LEVEL 142.0 MMOL/L (136-145); TRIGLYCERIDES LEVEL 60.0 MG/DL (<150)
[2025-05-21 13:17] LABS: FREE T4 1.02 NG/DL (0.89-1.76)
== END ==
LOC: M SFHCCLAY 07:52
PROVIDERS: ATTEND Nurse Practitioner Family
DX: M54.2 Cervicalgia (principal); N81.89 Other female genital prolapse; R63.5 Abnormal weight gain; R20.2 Paresthesia of skin; R53.83 Other fatigue

== ENCOUNTER → 2025-07-26 | Outpatient (REF) | payer OTHER ==
[2025-07-26 18:43] LABS: ALT/SGPT 22.0 U/L (7.0-40); AST/SGOT 23.0 U/L (<34); CALCIUM LEVEL 9.2 MG/DL (8.5-10.1); CARBON DIOXIDE LEVEL 28.0 MMOL/L (20-31); CHLORIDE LEVEL 104.0 MMOL/L (98-107); CREATININE FOR GFR 1.04 MG/DL (0.55-1.30); GLOMERULAR FILTRATION RATE 69.7 (>58); POTASSIUM SERUM 4.6 MMOL/L (3.5-5.1); PROGESTERONE 3.16 NG/ML; SODIUM LEVEL 141.0 MMOL/L (136-145)
[2025-07-26 18:44] LABS: ESTRADIOL 102.5 PG/ML
[2025-07-26 18:45] LABS: BASO # 0.1 10^3/uL (0.0-0.2); BASO % 1.0 % (0.0-1.0); EOS # 0.2 10^3/uL (0.0-0.5); EOS % 4.2 % (0.0-3.0); LYMPH # 1.6 10^3/uL (1.5-5.0); LYMPH % 29.5 % (24.0-44.0); MONO # 0.4 10^3/uL (0.0-0.8); MONO % 6.8 % (2.0-8.0); NEUTROPHILS # 3.1 10^3/uL (1.5-8.5); NEUTROPHILS % 58.3 % (36.0-66.0); PLATELET COUNT, AUTOMATED 316 10^3/uL (150-450)
[2025-08-04 16:48] LABS: TESTOSTERONE FREE (DIRECT) 9.5 pg/mL (0.1-6.4); TESTOSTERONE TOTAL FOR T&D 114.0 ng/dL (2-45)
== END ==
LOC: M LABDRAWC 17:53
PROVIDERS: ATTEND Registered Nurse
DX: Z79.890 Hormone replacement therapy (principal); E55.9 Vitamin D deficiency, unspecified; E34.8 Other specified endocrine disorders; Z13.1 Encounter for screening for diabetes mellitus; Z13.220 Encounter for screening for lipoid disorders; R53.83 Other fatigue; R41.840 Attention and concentration deficit; R45.4 Irritability and anger; M25.50 Pain in unspecified joint; R68.82 Decreased libido; N95.1 Menopausal and female climacteric states; N95.2 Postmenopausal atrophic vaginitis

== ENCOUNTER → 2025-07-26 | Outpatient (REF) | payer OTHER | LOC: M SFHCCLAY 11:24 | PROVIDERS: ATTEND Nurse Practitioner Family | DX: R53.83 Other fatigue (principal) ==